=== PATIENT | male | born 1955 | race Two or more races ===

== ENCOUNTER 2016-05-29 11:20 | Inpatient (IN) | END 2016-06-15 17:50 | disposition home or self-care (01) | DRG 330 | DX: K57.32 Diverticulitis of large intestine without perforation or abscess without bleeding (principal); K56.0 Paralytic ileus; I10 Essential (primary) hypertension; J98.11 Atelectasis; T81.4XXA Infection following a procedure, initial encounter; L02.818 Cutaneous abscess of other sites; R11.10 Vomiting, unspecified; R19.7 Diarrhea, unspecified ==